=== PATIENT | female | born 1985 | race Two or more races ===

== ENCOUNTER 2022-10-19 02:26 | Emergency (ER) | payer BC ==
[~2022-10-19] VITALS: Ht 160 cm; Wt 117.9 kg
--- NOTE | 2022-10-19 03:05 | NUR ---
BIBself from home C/O left sided sharp cp x 1.5hrs, non radiating. Pt A/Ox4. Tolerating R/A well with no resp distress. Connected pt to POX and monitor. Safety measures in place.
--- NOTE | 2022-10-19 03:14 | NUR ---
20G RF ESTABLISHED BLOOD DRAWN AND SENT TO LAB
[2022-10-19] MEDS ORDERED: IBUPROFEN 400 MG TABLET ONE (03:15)
[2022-10-19] MEDS: IBUPROFEN 400 MG TABLET PO ONE (03:17)
--- NOTE | 2022-10-19 03:29 | NUR ---
PT TAKEN TO CT VIA [facility]
[2022-10-19 03:36] LABS: BASOPHILS % (AUTO) 0.7 % (0.0-2.0); HEMATOCRIT 44 % (33-45); HEMOGLOBIN 14.7 g/dL (11.5-14.8); LYMPHOCYTES # (AUTO) 1.1 K/uL (0.8-4.8); LYMPHOCYTES % (AUTO) 19.5 % (20.0-44.0); MEAN CORPUSCULAR HGB CONC 34 g/dl (31.0-36.0); MEAN CORPUSCULAR VOLUME 87 fL (82-100); MONOCYTES # (AUTO) 0.4 K/uL (0.1-1.30); MONOCYTES % (AUTO) 7.9 % (2.0-12.0); NEUTROPHILS # (AUTO) 3.9 K/uL (1.8-8.9); NEUTROPHILS % (AUTO) 69.9 % (43.0-81.0); PLATELET COUNT (AUTO) 213 K/uL (150-450); RED BLOOD CELL COUNT(AUTO) 5.06 MIL/uL (4.0-5.2); WHITE BLOOD COUNT (AUTO) 5.6 K/uL (4.3-11.0)
--- NOTE | 2022-10-19 03:42 | NUR ---
SPECIALTY TRANSFORMER ASSEMBLER AT PT'S BEDSIDE
[2022-10-19 03:45] LABS: CALCIUM, SERUM 9.1 mg/dL (8.5-10.1); CARBON DIOXIDE 28 mmol/L (21-32); CHLORIDE 104 mmol/L (98-107); CREATININE 0.7 mg/dL (0.6-1.3); GLUCOSE 121 mg/dL (74-106); SODIUM SERUM 138 mmol/L (136-145); UREA NITROGEN, BLOOD 25 mg/dL (7-18)
[2022-10-19 03:58] LABS: ALANINE AMINOTRANSFERASE 34 U/L (12-78); ALBUMIN 3.3 g/dL (3.4-5.0); ALKALINE PHOSPHATASE 73 U/L (46-116); ASPARTATE AMINOTRANSFERASE 16 U/L (15-37); BILIRUBIN,DIRECT 0.1 mg/dL (0.0-0.2); BILIRUBIN,TOTAL 0.5 mg/dL (0.2-1.0); TOTAL PROTEIN, SERUM 7.6 g/dL (6.4-8.2)
--- NOTE | 2022-10-19 04:32 | NUR ---
CALLED [facility] AND SPOKE TO ANNA SALCEDO TO BE READ APPROXIMATELY IN 2 HOURS.
--- NOTE | 2022-10-19 05:05 | NUR ---
SHOE REPAIRER APPRENTICE AT PT'S BEDSIDE
--- NOTE | 2022-10-19 06:54 | NUR ---
CALLED [facility] AND SPOKE TO ANNA SALCEDO TO BE READ APPROXIMATELY WITHIN THE HOUR.
--- NOTE | 2022-10-19 07:25 | NUR ---
VSS. ENDORSED LANDY TO FUENTES FOSS.
[2022-10-19 09:23] VITALS: BP 114/55
--- NOTE | 2022-10-19 09:30 | NUR ---
Patient discharged to home in stable condition. Written and verbal after care instructions given. Patient verbalizes understanding of instruction.
== END 2022-10-19 09:30 | disposition home or self-care (01) ==
LOC: ER 02:29
DX: R07.9 Chest pain, unspecified (principal); M79.18 Myalgia, other site; R51.9 Headache, unspecified; E11.9 Type 2 diabetes mellitus without complications
CPT/HCPCS: 36415; 70450-TC; 71045-TC; 72125-TC; 80048-TC; 80076-TC; 83880; 84484-TC; 85025-TC; 85730-TC